=== PATIENT | male | born 2000 | race Caucasian/White ===

== ENCOUNTER 2019-12-29 09:46 | Emergency (ER) | payer BC, OTHER ==
[2019-12-29 09:52] VITALS: BP 129/65
[2019-12-29] MEDS ORDERED: AMOXICILLIN TR/POT CLAVULANATE 875-125 MG TAB PO ONE (10:35)
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
--- NOTE | 2019-12-29 11:14 | RADIOLOGY REPORT (SQ) ---
EXAM DESCRIPTION: HAND RIGHT 3 VIEWS IMAGES COMPLETED DATE/TIME: 12/29/2019 10:50 am REASON FOR STUDY: injury COMPARISON: None. NUMBER OF VIEWS: Three views right hand. LIMITATIONS: None. FINDINGS: Comminuted fracture through the index metacarpal distal shaft and neck. Slight foreshorte frank, volar minimal displacement and angulation. Other bones are intact. OTHER: No other significant finding. IMPRESSION: Index metacarpal for are scratch the distal fracture of the index metacarpal. TECHNICAL DOCUMENTATION: JOB ID: [id number] Reading location - IP/workstation name: [email or web address]
== END 2019-12-29 11:36 | disposition home or self-care (01) ==
LOC: ER 09:46
DX: S62.320B Displaced fracture of shaft of second metacarpal bone, right hand, initial encounter for open fracture (principal); S62.330B Displaced fracture of neck of second metacarpal bone, right hand, initial encounter for open fracture; W51.XXXA Accidental striking against or bumped into by another person, initial encounter
CPT/HCPCS: 99283; 73130; 29125; J3490

== ENCOUNTER 2020-01-04 11:12 | Day surgery (SDC) | payer BC, OTHER ==
[~2020-01-04 11:12] MED LIST: CEFAZOLIN 2 GM/D5W RTU 2 GM/50 ML RTUPB IV PRN; FENTANYL CITRATE INJ/PF 100 MCG/2 ML AMPUL ONE; MIDAZOLAM 2 MG/2 ML INJ ONE; ONDANSETRON HCL INJ/PF 4 MG/2 ML SDV ONE; PROPOFOL INJ 200 MG/20 ML VIAL IV ONE
[2020-01-04] MEDS ORDERED: CEFAZOLIN 2 GM/D5W RTU 2 GM/50 ML RTUPB IV ONE (11:52)
[2020-01-04] MEDS ORDERED: BUPIVACAINE HCL 0.5 % INJ/PF 30 ML SDV ONE (11:55)
[2020-01-04] MEDS ORDERED: OXYCODONE-ACETAMINOPHEN 5-325 MG TABLET PO PRN ×3 (13:47→14:29)
[2020-01-04] MEDS ORDERED: FENTANYL CITRATE INJ/PF 100 MCG/2 ML AMPUL IV PRN ×3 (13:47)
[2020-01-04] MEDS ORDERED: MORPHINE SULFATE 10 MG/ML INJ IV PRN ×2 (13:47→14:29)
[2020-01-04] MEDS ORDERED: DIPHENHYDRAMINE HCL 50 MG/ML VIAL IV PRN (13:47)
[2020-01-04] MEDS ORDERED: ONDANSETRON HCL INJ/PF 4 MG/2 ML SDV IV PRN (13:47)
[2020-01-04] MEDS ORDERED: MEPERIDINE HCL/PF INJ 25 MG/1 ML DISP.SYRIN IV PRN (13:47)
[2020-01-04] MEDS ORDERED: PROMETHAZINE HCL INJ 25 MG/1 ML VIAL IV PRN ×2 (13:47)
[2020-01-04] MEDS ORDERED: MORPHINE SULFATE 10 MG/ML INJ ONE (14:26)
--- NOTE | 2020-01-04 14:30 | Discharge Summary ---
Discharge Summary (SDC) - Discharge Final Diagnosis: Right Index Metacarpal Neck Fracture Date of Surgery: 01/04/20 Discharge Date: 01/04/20 Condition: Good Treatment or Instructions: Schedule Follow Up w/ Dr. Armaan Morelos @ [facility] for Surgery to be seen in 10-14 days or as scheduled [place]: [place]: [place]: Ice and elevate Keep splint clean/dry/intact, do not remove. If your fingers become numb please unwrap the Joe wrap but leave the splint in place, if the sensation does not return within 30 minutes please return to the emergency department. May begin finger range of motion attempting to make full fist. Please use ibuprofen (Motrin or Advil) 600-800 mg every 8 hours as needed for pain or fever DO NOT TAKE w/ TORADOL may use once TORADOL complete. You may also use acetaminophen (Tylenol) 1000 mg every 4-6 hours as needed for pain or fever. Please be aware that many medications contain acetaminophen, do not exceed a total of 1000 mg of acetaminophen every 6 hours. If ibuprofen and acetaminophen are not sufficient for your pain you may take the Percocet/Maryneal. Please be aware that the Percocet/Maryneal does contain Tylenol. Stool softener of choice when on pain medication. USE OF ARIY-FXA-SNPUPHL IBUPROFEN: Ibuprofen (Advil, Nuprin, Medipren, Motrin IB) is a medication for fever and pain control. In addition, it has anti- inflammatory effects which may be beneficial, especially in the treatment of injuries. It's best to take ibuprofen with food. Persons with ulcer disease or allergy to aspirin should notify their physician of this before taking ibuprofen. Ibuprofen can be given every four to six hours, for a total of four doses daily. Age Pain or fever dose Antiinflammatory dose 6-8 yr 200 mg (1 tab) 200 mg (1 tab) 9-11 yr 200 mg (1 tab) 200-400 mg (1-2 tab) 11-14 yr 200-400 mg (1-2 tab) 400 mg (2 tab) 15-adult 400 mg (2 tab) 600 mg (3 tab) ORAL NARCOTIC MEDICATION: You have been given a prescription for pain control. This medication is a narcotic. It's best taken with food, as nausea can result if taken on an empty stomach. Don't operate machinery or drive within six hours of taking this medication. Do not combine this medicine with alcohol, or with any medication which can cause sedation (such as cold tablets or sleeping pills) unless you get permission from the physician. Narcotics tend to cause constipation. If possible, drink plenty of fluids and eat a diet high in fiber and fruits. Please be aware that prescription narcotics also have the potential for abuse. People become addicted to these medications because of the general sense of wellbeing that they induce. This feeling along with a significant reduction in tension, anxiety, and aggression provides a stimulating seductive quality to these drugs. Once your pain is under control, we encourage you to discard your unused narcotics. Prescriptions: Ketorolac Tromethamine [Toradol 10 mg Tablet] 10 mg PO Q8HP PRN #12 tablet PRN Reason: Oxycodone HCl/Acetaminophen [Percocet 5-325 mg Tablet] 1 tab PO Q6 PRN #25 tab PRN Reason: Referrals: SHELLEY TRIVEDI MD [Primary Care Provider] - ARMAAN MORELOS DO [ACTIVE STAFF] - 01/18/20 8:00 am Discharge Diet: As Tolerated Respiratory Treatments at Home: Deep Breathing/Coughing, Incentive Spirometer Discharge Activity: No Lifting Over 10 Pounds, No Lifting/Push/Pulling Report the Following to Your Physician Immediately: Fever over 101 Degrees, Unusual Bleeding, Redness, Swelling, Warmth, Increased Soreness
[2020-01-04] MEDS ORDERED: OXYCODONE-ACETAMINOPHEN 5-325 MG TABLET ONE (14:37)
--- NOTE | 2020-01-04 14:39 | Operative Report ---
Operative Report DATE OF SURGERY: 01/04/20 PREOPERATIVE DIAGNOSIS: Left Open index Metacarpal Neck Fracture POSTOPERATIVE DIAGNOSIS: Same OPERATION: ORIF Left Index Metacarpal Fracture. I&D Left Index MCP Joint, Open fracture index metacarpal neck SURGEON: SHARI MORELOS ANESTHESIA: GA COMPLICATIONS: None ESTIMATED BLOOD LOSS: Minimal PROCEDURE: Indication for above procedure 19-year-old male who sustained a open fracture of his index metacarpal patient was seen in the emergency room where area was irrigated and fracture confirmed with radiographs. Patient was then sent to my office at which point we discussed treatment options including operative versus nonoperative intervention after discussing risk and benefits of both decision was made to proceed with operative treatment. Procedure In Detail: Patient was seen and evaluated in the preoperative holding area. The right upper extremity was initialized and marked. Patient received 2g of Ancef IV for bacterial prophylaxis. Patient was taken back to the operative room where transferred to the operative table and placed under general anesthesia. Once they were adequately anesthetized a nonsterile tourniquet was placed on the upper extremity. A surgical team debriefing was performed ensuring all instrumentation was available, the surgical procedure was discussed with p ossible concerns reviewed. The upper extremity was prepped with chlorhexidine and alcohol and draped in a sterile fashion. A timeout was done identifying correct patient, procedure and extremity everyone in attendance agree with this and verbalized no concerns. The extremity was exsanguinated the tourniquet was inflated to 250 mmHg. Patient's 6 mm open wound was then opened proximally and distally. Blunt dissection was performed. Any small peripheral veins were coagulated bipolar cautery. Open wound extended into the metacarpal neck. There was significant comminution of the metacarpal neck. This open fracture was copiously irrigated with normal saline. Any nonviable tissue was excised. Interval between the EIP and EDC was then developed MCP joint identified. MCP joint was irrigated and hematoma extracted. The metacarpal neck fracture was then reduced and fixed with provisional K wire. K wire for the [place] 3.0 mm x 40 mm headless compression screw was placed on the medullary canal maintaining reduction. A reduction tenaculum was also placed to avoid compression and shortening at the fracture. C-arm was obtained confirming acceptable reduction. There is no evidence of malrotation with tenodesis. The [place] 3.0 mm x 40 mm headless compression screw was then placed across the fracture site and countersunk below the articular surface. K wires were then removed. Good stability of the fracture was noted. There there was mild shortening at the fracture site given the amount of dorsal comminution. There is no evidence of malrotation with tenodesis. C arm fluoroscopy was obtained confirming acceptable reduction of the fracture and placement of the hardware. Wound was copiously irrigated with normal saline. Interval between the EIP and EDC was closed with interrupted 3-0 Vicryl suture. 10 cc of 0.5% Marcaine without epinephrine was injected. Skin was closed with horizontal mattress and interrupted 4-0 nylon suture. Wound was dressed Xeroform, gauze and patient was placed in a radial gutter splint. Sponge counts, instrument counts, needle counts were correct. Patient was then awoken from anesthesia. Transferred from the operating room table to the operating room stretcher. There was no intraoperative complications patient tolerated procedure well stable to PACU. Postoperative plan: Patient follow in the office in 2 weeks we will obtain radiographs. We will begin occupational therapy 4 weeks postoperatively.
--- NOTE | 2020-01-04 15:39 | RADIOLOGY REPORT (SQ) ---
EXAM DESCRIPTION: NO CHG FLUORO; HAND RIGHT 2 VIEWS IMAGES COMPLETED DATE/TIME: 01/04/2020 2:43 pm REASON FOR STUDY: ORIF RIGHT HAND ASSISTED WITH FLUORO IN OR COMPARISON: None. FLUOROSCOPY TIME: 26 seconds 4 Images saved to PACS LIMITATIONS: None. PROCEDURE: ORIF right hand FINDINGS: Images from fluoro document placement of a long screw through the 2nd metacarpal. IMPRESSION: ORIF right hand. Refer to operative note for further information. COMMENT: PQRS 6045F: Fluoroscopy time of the procedure is documented in the report. TECHNICAL DOCUMENTATION: JOB ID: [id number] 2010 [employer]- All Rights Reserved Reading location - IP/workstation name: [email or web address]
--- NOTE | 2020-01-04 15:39 | RADIOLOGY REPORT (SQ) ---
EXAM DESCRIPTION: NO CHG FLUORO; HAND RIGHT 2 VIEWS IMAGES COMPLETED DATE/TIME: 01/04/2020 2:43 pm REASON FOR STUDY: ORIF RIGHT HAND ASSISTED WITH FLUORO IN OR COMPARISON: None. FLUOROSCOPY TIME: 26 seconds 4 Images saved to PACS LIMITATIONS: None. PROCEDURE: ORIF right hand FINDINGS: Images from fluoro document placement of a long screw through the 2nd metacarpal. IMPRESSION: ORIF right hand. Refer to operative note for further information. COMMENT: PQRS 6045F: Fluoroscopy time of the procedure is documented in the report. TECHNICAL DOCUMENTATION: JOB ID: [id number] 2010 [employer]- All Rights Reserved Reading location - IP/workstation name: [email or web address]
[2020-01-04 16:05] VITALS: BP 132/81
== END 2020-01-04 16:05 | disposition home or self-care (01) ==
LOC: OROUT 11:12
PROVIDERS: ATTEND Orthopaedic Surgery
DX: S62.330B Displaced fracture of neck of second metacarpal bone, right hand, initial encounter for open fracture (principal); Y04.0XXA Assault by unarmed brawl or fight, initial encounter; Z03.818 Encounter for observation for suspected exposure to other biological agents ruled out
CPT/HCPCS: 73120; 01830; 26615; C1713 ×2; U0003; J2250; J3490; J3010; J2270; J2405; J2704; J0690; C9803; 87635

== ENCOUNTER 2020-02-11 17:13 | Emergency (ER) | payer BC, OTHER ==
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
--- NOTE | 2020-02-11 18:48 | RADIOLOGY REPORT (SQ) ---
EXAM DESCRIPTION: CT HEAD WITHOUT IMAGES COMPLETED DATE/TIME: 02/11/2020 6:32 pm REASON FOR STUDY: trauma COMPARISON: None. TECHNIQUE: Axial images acquired through the brain without intravenous contrast. Images reviewed wit h bone, brain and subdural windows. Images stored on PACS. All CT scanners at this facility use dose modulation, iterative reconstruction, and/or weight based d osing when appropriate to reduce radiation dose to as low as reasonably achievable (ALARA). [facility]: Dose Right [facility]: CareDose [facility]: Dose Right [facility]: Teradose 4D [facility]: Zairge RADIATION DOSE: CT Rad equipment meets quality standard of care and radiation dose reduction techniq ues were employed. CTDIvol: 53.2 mGy. DLP: 937 mGy-cm.. LIMITATIONS: None. FINDINGS: VENTRICLES: Normal size and contour. CEREBRUM: No masses. No hemorrhage. No midline shift. Age appropriate white matter. No evidence for a cute infarction. CEREBELLUM: No masses. No hemorrhage. No alteration of density. No evidence for acute infarction. EXTRA-AXIAL SPACES: No fluid collections. ORBITS AND GLOBE: No intra- or extraconal masses. Normal contour of globe without masses. CALVARIUM: No fracture. PARANASAL SINUSES: Right maxillary sinus mucosal thickening. SOFT TISSUES: Frontal soft tissue laceration. OTHER: No other significant finding. IMPRESSION: No intracranial hemorrhage or fracture identified. EVIDENCE OF ACUTE STROKE: NO. TECHNICAL DOCUMENTATION: JOB ID: [id number] [place]-72 Quality ID # [id number]: Final reports with documentation of one or more dose reduction techniques (e.g., Au tomated exposure control, adjustment of the mA and/or kV according to patient size, use of iterative reconstruction technique) 2010 [employer]- All Rights Reserved Reading location - IP/workstation name: [email or web address]
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
[2020-02-12] MEDS ORDERED: LIDOCAINE 1%/EPINEPHRINE INJ 20 ML VIAL INJ ONE (02:05)
[2020-02-12 03:38] VITALS: BP 128/74
== END 2020-02-12 03:37 | disposition home or self-care (01) ==
LOC: ER 17:13
DX: S01.81XA Laceration without foreign body of other part of head, initial encounter (principal); W22.8XXA Striking against or struck by other objects, initial encounter
CPT/HCPCS: 99284; 70450; 12053; J3490